=== PATIENT | female | born 1975 | race Caucasian/White ===

== ENCOUNTER 2017-06-22 06:39 | Day surgery (SDC) | payer MEDICAID ==
[~2017-06-22] VITALS: Ht 154.9 cm; Wt 51.3 kg
[2017-06-22] VITALS (7 sets, daily range): BP systolic 100–109; BP diastolic 57–64; PULSE 60–76; RESP 9–20; Ht 154.9 cm; Wt 51.3 kg
[~2017-06-22 06:39] MED LIST: CEFAZOLIN 2 GM/50 ML (PMX) 50 ML IVPB ONE; CIPR500T4 PO; HYDR-3498 PO; IBUP-1542 PO; SOD CHLORIDE 0.9% 1,000 ML IV ONE
[2017-06-22 07:01] LABS: BASOPHIL # 0.1 10^3/ul (0.0-0.1); BASOPHILS % 0.7 % (0.0-2.0); EOSINOPHILS # 0.2 10^3/ul (0.0-0.5); EOSINOPHILS % 3.1 % (0.0-7.0); HEMATOCRIT 32.3 % (37.0-47.0); LYMPHOCYTES # 2.6 10^3/ul (0.8-2.9); LYMPHOCYTES % 38.4 % (15.0-51.0); MEAN CORPUSCULAR HEMOGLOBIN 24.7 pg (29.0-33.0); MEAN CORPUSCULAR VOLUME 79.8 fl (82.0-101.0); MEAN PLATELET VOLUME 9.1 fl (7.4-10.4); MONOCYTE # 0.3 10^3/ul (0.3-0.9); MONOCYTES % 4.9 % (0.0-11.0); NEUTROPHIL # 3.5 10^3/ul (1.6-7.5); NEUTROPHILS % 52.6 % (39.0-77.0); PLATELET COUNT 320 10^3/UL (140-415); RED BLOOD COUNT 4.05 10^6/ul (4.20-5.40); RED CELL DISTRIBUTION WIDTH 18.6 % (11.5-14.5); WHITE BLOOD COUNT 6.7 10^3/ul (4.8-10.8)
[2017-06-22 07:20] LABS: INR 1.12; PARTIAL THROMBOPLASTIN TIME 29.8 Sec (25.0-35.0); PROTIME 14.4 Sec (12.2-14.2); PT RATIO 1.1
[2017-06-22 07:24] LABS: ALBUMIN 3.9 g/dl (3.3-4.9); BILIRUBIN,INDIRECT 0.2 mg/dl (0-1.1); BILIRUBIN,TOTAL 0.2 mg/dl (0.2-1.3); TOTAL PROTEIN 7.8 g/dl (6.1-8.1)
[2017-06-22] MEDS ORDERED: ROCURONIUM 50 MG INJ ONE (07:29)
[2017-06-22] MEDS ORDERED: GLYCOPYRROLATE 0.4 MG INJ ONE (07:29)
[2017-06-22] MEDS ORDERED: LIDOCAINE 2% (SDV) 5 ML INJ ONE (07:29)
[2017-06-22] MEDS ORDERED: FENTAnyl 50 MCG/ML VIAL ONE (07:29)
[2017-06-22] MEDS ORDERED: PROPOFOL 20 ML ONE (07:29)
[2017-06-22] MEDS ORDERED: MIDAZOLAM 1 MG/ML 2 ML INJ ONE (07:29)
[2017-06-22] MEDS ORDERED: NEOSTIGMINE 3 MG/3 ML SYRINGE ONE (07:29)
[2017-06-22 07:30] LABS: POTASSIUM 3.7 mmol/L (3.5-5.1)
[2017-06-22] MEDS ORDERED: OXYCODONE/ACETAMINOPHEN (5/325) TAB PO PRN ×2 (07:30)
[2017-06-22] MEDS ORDERED: ONDANSETRON 4 MG INJ ONE (07:30)
[2017-06-22] MEDS ORDERED: HYDROmorphONE (0.2 MG/ML) 10ML SYG IV PRN ×3 (07:30)
[2017-06-22] MEDS ORDERED: EPHEDrine SULFATE 50 MG/5 ML SYG IV PRN (07:30)
[2017-06-22] MEDS ORDERED: MEPERIDINE 25 MG INJ IV PRN (07:30)
[2017-06-22] MEDS ORDERED: MIDAZOLAM 1 MG/ML 2 ML INJ IV PRN (07:30)
[2017-06-22] MEDS ORDERED: LABETALOL HCL 20MG INJ IV PRN (07:30)
[2017-06-22] MEDS ORDERED: hydrALAzine 20 MG INJ IV PRN (07:30)
[2017-06-22] MEDS ORDERED: FENTAnyl 50 MCG/ML VIAL IV PRN (07:30)
[2017-06-22] MEDS ORDERED: ONDANSETRON 4 MG INJ IV PRN (07:30)
[2017-06-22] MEDS ORDERED: DIPHENHYDRAMINE 50 MG INJ IV PRN (07:30)
[2017-06-22] MEDS ORDERED: morphine (1 MG/ML) 10ML SYRINGE IV PRN ×3 (07:30)
[2017-06-22] MEDS ORDERED: ATROPINE 1 MG/10 ML SYRINGE IV PRN (07:30)
[2017-06-22 07:31] LABS: CREATININE 0.62 mg/dl (0.44-1.00)
[2017-06-22] MEDS ORDERED: SUGAMMADEX SODIUM 200 MG/2 ML VIAL IV ONE (07:31)
[2017-06-22] MEDS ORDERED: CEFAZOLIN 1 GM INJ ONE (07:31)
[2017-06-22] MEDS ORDERED: BUPIVACAINE 0.5%/EPI (SDV) 30 ML INJ ONE (08:06)
--- NOTE | 2017-06-22 09:44 | SIPON ---
Date/Time of Note Date/Time of Note DATE: 06/22/17 TIME: 09:42 Operative Report Preoperative Diagnosis Left breast mass Postoperative Diagnosis Same Operation/Procedure Performed Excision of left breast mass Surgeon see signature line conventions assistant Dr Jara Anesthesia: general Estimated blood loss: 0 - 10 ml's Transfusion Required none Specimen Left breast specimen Grafts/Implants none Complications none EUGENIA RUELAS MD Jun 22, 2017 09:44
[2017-06-22] MEDS ORDERED: HYDROCODONE/APAP (7.5/325) TAB PO PRN (10:00)
[2017-06-22] MEDS: FENTAnyl 50 MCG/ML VIAL IV PRN ×2 (10:06→10:17)
--- NOTE | 2017-06-22 10:40 | OPR ---
DATE OF OPERATION: 06/22/2017 PREOPERATIVE DIAGNOSIS: Left breast mass. POSTOPERATIVE DIAGNOSIS: Left breast mass. OPERATION PERFORMED: Excision of left breast mass. ANESTHESIA: General. ANESTHESIOLOGIST: Dr. Robles. SURGEON: Ramu Strange MD GROUP HOME MANAGER: Dr. Jara. INDICATIONS FOR PROCEDURE: The patient is a 41-year-old female who presented with a palpable mass i n her left breast at approximately the 2 o'clock location, approximately 2 cm from the nipple-areola r border. 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 Surgical excision was recommended. The patient consented and was schedu led for surgery. DESCRIPTION OF PROCEDURE: The patient was brought to the operating theater, placed under general an esthesia. The left breast was prepped and draped in usual sterile fashion. A 2 to 3 cm incision wa s made directly over the mass. Subcutaneous tissue was then dissected with cautery. Within the sub cutaneous space, a well-circumscribed mass consistent with the preoperative diagnosis was identified . It was enucleated with a gloved finger, transected and removed. Minimal bleeding was controlled with cautery. The skin was then reapproximated with 5-0 PDS suture in subcuticular fashion, and luisa zoin and Steri-Strips were applied. The patient tolerated procedure well. Estimated blood loss was 10 mL. There were no complications and the patient was transported in stable condition to the [facility] very room where circumferential compression dressing was applied. Dictated By: RAMU MAYO/CK Conf#: [id number] [facility]#: [id number]
== END 2017-06-22 11:11 | disposition home or self-care (01) ==
LOC: SDS 06:39
PROVIDERS: ATTEND Surgery Surgical Oncology
DX: D24.2 Benign neoplasm of left breast (principal)
CPT/HCPCS: 19120; 80053; 84703; 85025; 85610; 85730; 88307; J0690; J2250; J2405; J3010; Z7512; Z7610; J2710

== ENCOUNTER 2017-06-24 20:10 | Emergency (ER) | payer MEDICAID, OTHER ==
[~2017-06-24] VITALS: Ht 154.9 cm; Wt 52.0 kg
[2017-06-24 20:20] VITALS: Ht 154.9 cm; Wt 52.0 kg
--- NOTE | 2017-06-24 22:28 | ERD ---
ER Documentation Chief Complaint Chief Complaint removed steri strips by mistake, post op breast surgery, no bleeding HPI 41-year-old female who presents the ED for concerns of a wound check. Patient states she underwent breast surgery [address] Ramu Strange remove a breast cyst. Patient states she was taking a shower when she accidentally removed her Steri-Strips. Patient denies any wound dehiscence. Patient states she did have some minimal bleeding however lasted only for a minute. Patient denies any fevers or chills. Patient denies any chest pain, shortness of breath , nausea, vomiting or loss of consciousness. ROS All systems reviewed and are negative except as per history of present illness. Medications Home Meds Discontinued Scripts Hydrocodone Bit-Acetaminophen* ([place]*) 5-325 Mg Tab, 1 TAB PO DAILY Y for PAIN , #15 TAB 0 Refills Prov:CHARLENE ZHENG PA-C 10/15/15 Ibuprofen* (Motrin*) 600 Mg Tab, 600 MG PO Q6, #30 TAB Prov:SCOTTIE PANDYA 08/25/15 Hydrocodone Bit-Acetaminophen* ([place]*) 5-325 Mg Tab, 1 TAB PO Q6 Y for PAIN, # 20 TAB Prov:SCOTTIE PANDYA C 08/25/15 Ciprofloxacin Hcl* (Ciprofloxacin Hcl*) 500 Mg Tablet, 500 MG PO BID, #14 TAB Prov:SCOTTIE PANDYA C 08/25/15 Allergies Allergies: Coded Allergies: No Known Allergy (Unverified , 06/24/17) PMhx/Soc Medical and Surgical Hx: pt denies Surgical Hx History of Surgery: No Anesthesia Reaction: No Hx Neurological Disorder: No Hx Respiratory Disorders: No Hx Cardiac Disorders: No Hx Psychiatric Problems: No Hx Miscellaneous Medical Probl: Yes (lt breast lesion) Hx Alcohol Use: No Hx Substance Use: No Hx Tobacco Use: No Physical Exam Vitals Vital Signs Date Time Temp Pulse Resp B/P Pulse Ox O2 Delivery O2 Flow Rate FiO2 06/24/17 20:20 97.8 74 20 118/53 100 Physical Exam GENERAL: Well-developed, well-nourished female. Appears in no acute distress. HEAD: Normocephalic, atraumatic. EYES: Pupils are equally reactive bilaterally. EOMs grossly intact. No conjunctival erythema. ENT: Moist mucous membranes. No uvula deviation. No kissing tonsils. NECK: Supple. No meningismus. Normal range of motion of the neck. LUNG: Clear to auscultation bilaterally. No rhonchi, wheezing, rales or coarse breath sounds. LEFT BREAST: 2 Centimeter incision noted in the 2 o'clock position of the left breast above the nipple. No wound dehiscence noted. One Steri-Strip remains intact. No active bleeding. No warmth, no swelling. HEART: Regular rate and rhythm. No murmurs, rubs or gallops. EXTREMITIES: Equal pulses bilaterally. No peripheral clubbing, cyanosis or edema. No unilateral leg swelling. NEUROLOGIC: Alert and oriented. Moving all four extremities without any difficulty. Normal speech. Steady gait. SKIN: Normal color. Warm and dry. No rashes or lesions. Procedures/MDM MEDICAL DECISION MAKING: This is a 41-year-old female who presents to the ED for concerns of a wound check to her left breast. Patient underwent cyst removal on Sunday of her left breast. Patient states she actually pulled off the Steri-Strips earlier today while showering. Vital signs were reviewed. Patient is afebrile. The wound appears to be healing well with no concerns of acute infection at this time. No wound drainage or wound dehiscence noted. Steri-Strips were replaced on the patient's wound. Wound care was discussed with the patient. Low suspicion for wound dehiscence, deep space infection, abscess, ACS. Was advised to follow-up with her Dr. Strange as scheduled. DISCHARGE: At this time, the patient is stable for discharge and outpatient management. Post-procedural wound care was discussed with the patient. I have instructed the patient to promptly return to the ER for any new or worsening symptoms including increasing pain, fever, warmth, redness or swelling. The patient and/ or family expressed understanding of and agreement with this plan. All questions were answered. Home care instructions were provided. Departure Diagnosis: Primary Impression: Encounter for wound re-check Condition: Stable Patient Instructions: Post Op Wound Check, Pain, Wound Check, Lac F/U (No Infection) Referrals: RAMU STRANGE MD [facility] YOU HAVE RECEIVED A MEDICAL SCREENING EXAM AND THE RESULTS INDICATE THAT YOU DO NOT HAVE A CONDITION THAT REQUIRES URGENT TREATMENT IN THE EMERGENCY DEPARTMENT. FURTHER EVALUATION AND TREATMENT OF YOUR CONDITION CAN WAIT UNTIL YOU ARE SEEN IN YOUR DOCTORS OFFICE WITHIN THE NEXT 1-2 DAYS. IT IS YOUR RESPONSIBILITY TO MAKE AN APPOINTMENT FOR FOLOW-UP CARE. IF YOU HAVE A PRIMARY DOCTOR --you should call your primary doctor and schedule an appointment IF YOU DO NOT HAVE A PRIMARY DOCTOR YOU CAN CALL OUR PHYSICIAN REFERRAL HOTLINE AT IF YOU CAN NOT AFFORD TO SEE A PHYSICIAN YOU CAN CHOSE FROM THE FOLLOWING [facility] [address] [facility] [address] [facility] [address] [facility] [address] [facility] [address] [facility]. [facility] [address] [facility]. [facility] YOU HAVE RECEIVED A MEDICAL SCREENING EXAM AND THE RESULTS INDICATE THAT YOU DO NOT HAVE A CONDITION THAT REQUIRES URGENT TREATMENT IN THE EMERGENCY DEPARTMENT. FURTHER EVALUATION AND TREATMENT OF YOUR CONDITION CAN WAIT UNTIL YOU ARE SEEN IN YOUR DOCTORS OFFICE WITHIN THE NEXT 1-2 DAYS. IT IS YOUR RESPONSIBILITY TO MAKE AN APPOINTMENT FOR FOLOW-UP CARE. IF YOU HAVE A PRIMARY DOCTOR --you should call your primary doctor and schedule and appointment IF YOU DO NOT HAVE A PRIMARY DOCTOR YOU CAN CALL OUR PHYSICIAN REFERRAL HOTLINE AT . IF YOU CAN NOT AFFORD TO SEE A PHYSICIAN YOU CAN CHOSE FROM THE FOLLOWING [facility]: [facility] [address] [place] [address] [facility] [address] [place] [address] [facility] + [facility] [address] [place] [address] Additional Instructions: Follow up with . Call your primary care doctor TOMORROW for an appointment during the next 1-2 days.See the doctor sooner or return here if your condition worsens before your appointment time. SUSY TRAN PA-C Jun 24, 2017 22:28
--- NOTE | 2017-06-24 22:28 | ERD ---
ER Documentation Chief Complaint Chief Complaint removed steri strips by mistake, post op breast surgery, no bleeding HPI 41-year-old female who presents the ED for concerns of a wound check. Patient states she underwent breast surgery [address] Ramu Strange remove a breast cyst. Patient states she was taking a shower when she accidentally removed her Steri-Strips. Patient denies any wound dehiscence. Patient states she did have some minimal bleeding however lasted only for a minute. Patient denies any fevers or chills. Patient denies any chest pain, shortness of breath , nausea, vomiting or loss of consciousness. ROS All systems reviewed and are negative except as per history of present illness. Medications Home Meds Discontinued Scripts Hydrocodone Bit-Acetaminophen* ([place]*) 5-325 Mg Tab, 1 TAB PO DAILY Y for PAIN , #15 TAB 0 Refills Prov:CHARLENE ZHENG PA-C 10/15/15 Ibuprofen* (Motrin*) 600 Mg Tab, 600 MG PO Q6, #30 TAB Prov:SCOTTIE PANDYA 08/25/15 Hydrocodone Bit-Acetaminophen* ([place]*) 5-325 Mg Tab, 1 TAB PO Q6 Y for PAIN, # 20 TAB Prov:SCOTTIE PANDYA C 08/25/15 Ciprofloxacin Hcl* (Ciprofloxacin Hcl*) 500 Mg Tablet, 500 MG PO BID, #14 TAB Prov:SCOTTIE PANDYA C 08/25/15 Allergies Allergies: Coded Allergies: No Known Allergy (Unverified , 06/24/17) PMhx/Soc Medical and Surgical Hx: pt denies Surgical Hx History of Surgery: No Anesthesia Reaction: No Hx Neurological Disorder: No Hx Respiratory Disorders: No Hx Cardiac Disorders: No Hx Psychiatric Problems: No Hx Miscellaneous Medical Probl: Yes (lt breast lesion) Hx Alcohol Use: No Hx Substance Use: No Hx Tobacco Use: No Physical Exam Vitals Vital Signs Date Time Temp Pulse Resp B/P Pulse Ox O2 Delivery O2 Flow Rate FiO2 06/24/17 20:20 97.8 74 20 118/53 100 Physical Exam GENERAL: Well-developed, well-nourished female. Appears in no acute distress. HEAD: Normocephalic, atraumatic. EYES: Pupils are equally reactive bilaterally. EOMs grossly intact. No conjunctival erythema. ENT: Moist mucous membranes. No uvula deviation. No kissing tonsils. NECK: Supple. No meningismus. Normal range of motion of the neck. LUNG: Clear to auscultation bilaterally. No rhonchi, wheezing, rales or coarse breath sounds. LEFT BREAST: 2 Centimeter incision noted in the 2 o'clock position of the left breast above the nipple. No wound dehiscence noted. One Steri-Strip remains intact. No active bleeding. No warmth, no swelling. HEART: Regular rate and rhythm. No murmurs, rubs or gallops. EXTREMITIES: Equal pulses bilaterally. No peripheral clubbing, cyanosis or edema. No unilateral leg swelling. NEUROLOGIC: Alert and oriented. Moving all four extremities without any difficulty. Normal speech. Steady gait. SKIN: Normal color. Warm and dry. No rashes or lesions. Procedures/MDM MEDICAL DECISION MAKING: This is a 41-year-old female who presents to the ED for concerns of a wound check to her left breast. Patient underwent cyst removal on Sunday of her left breast. Patient states she actually pulled off the Steri-Strips earlier today while showering. Vital signs were reviewed. Patient is afebrile. The wound appears to be healing well with no concerns of acute infection at this time. No wound drainage or wound dehiscence noted. Steri-Strips were replaced on the patient's wound. Wound care was discussed with the patient. Low suspicion for wound dehiscence, deep space infection, abscess, ACS. Was advised to follow-up with her Dr. Strange as scheduled. DISCHARGE: At this time, the patient is stable for discharge and outpatient management. Post-procedural wound care was discussed with the patient. I have instructed the patient to promptly return to the ER for any new or worsening symptoms including increasing pain, fever, warmth, redness or swelling. The patient and/ or family expressed understanding of and agreement with this plan. All questions were answered. Home care instructions were provided. Departure Diagnosis: Primary Impression: Encounter for wound re-check Condition: Stable Patient Instructions: Post Op Wound Check, Pain, Wound Check, Lac F/U (No Infection) Referrals: RAMU STRANGE MD [facility] YOU HAVE RECEIVED A MEDICAL SCREENING EXAM AND THE RESULTS INDICATE THAT YOU DO NOT HAVE A CONDITION THAT REQUIRES URGENT TREATMENT IN THE EMERGENCY DEPARTMENT. FURTHER EVALUATION AND TREATMENT OF YOUR CONDITION CAN WAIT UNTIL YOU ARE SEEN IN YOUR DOCTORS OFFICE WITHIN THE NEXT 1-2 DAYS. IT IS YOUR RESPONSIBILITY TO MAKE AN APPOINTMENT FOR FOLOW-UP CARE. IF YOU HAVE A PRIMARY DOCTOR --you should call your primary doctor and schedule an appointment IF YOU DO NOT HAVE A PRIMARY DOCTOR YOU CAN CALL OUR PHYSICIAN REFERRAL HOTLINE AT IF YOU CAN NOT AFFORD TO SEE A PHYSICIAN YOU CAN CHOSE FROM THE FOLLOWING [facility] [place] [place] [address] [facility] [address] [facility] [address] [facility] [address] [facility] [address] [facility]. [facility] [address] [facility]. [facility] YOU HAVE RECEIVED A MEDICAL SCREENING EXAM AND THE RESULTS INDICATE THAT YOU DO NOT HAVE A CONDITION THAT REQUIRES URGENT TREATMENT IN THE EMERGENCY DEPARTMENT. FURTHER EVALUATION AND TREATMENT OF YOUR CONDITION CAN WAIT UNTIL YOU ARE SEEN IN YOUR DOCTORS OFFICE WITHIN THE NEXT 1-2 DAYS. IT IS YOUR RESPONSIBILITY TO MAKE AN APPOINTMENT FOR FOLOW-UP CARE. IF YOU HAVE A PRIMARY DOCTOR --you should call your primary doctor and schedule and appointment IF YOU DO NOT HAVE A PRIMARY DOCTOR YOU CAN CALL OUR PHYSICIAN REFERRAL HOTLINE AT . IF YOU CAN NOT AFFORD TO SEE A PHYSICIAN YOU CAN CHOSE FROM THE FOLLOWING [facility]: [facility] [address] [place] [address] [facility] [address] [place] [address] [facility] [address] [place] [address] Additional Instructions: Follow up with . Call your primary care doctor TOMORROW for an appointment during the next 1-2 days.See the doctor sooner or return here if your condition worsens before your appointment time. SUSY TRAN PA-C Jun 24, 2017 22:28
--- NOTE | 2017-06-24 22:28 | ERD ---
ER Documentation Chief Complaint Chief Complaint removed steri strips by mistake, post op breast surgery, no bleeding HPI 41-year-old female who presents the ED for concerns of a wound check. Patient states she underwent breast surgery [address] Ramu Strange remove a breast cyst. Patient states she was taking a shower when she accidentally removed her Steri-Strips. Patient denies any wound dehiscence. Patient states she did have some minimal bleeding however lasted only for a minute. Patient denies any fevers or chills. Patient denies any chest pain, shortness of breath , nausea, vomiting or loss of consciousness. ROS All systems reviewed and are negative except as per history of present illness. Medications Home Meds Discontinued Scripts Hydrocodone Bit-Acetaminophen* ([place]*) 5-325 Mg Tab, 1 TAB PO DAILY Y for PAIN , #15 TAB 0 Refills Prov:CHARLENE ZHENG PA-C 10/15/15 Ibuprofen* (Motrin*) 600 Mg Tab, 600 MG PO Q6, #30 TAB Prov:SCOTTIE PANDYA 08/25/15 Hydrocodone Bit-Acetaminophen* ([place]*) 5-325 Mg Tab, 1 TAB PO Q6 Y for PAIN, # 20 TAB Prov:SCOTTIE PANDYA C 08/25/15 Ciprofloxacin Hcl* (Ciprofloxacin Hcl*) 500 Mg Tablet, 500 MG PO BID, #14 TAB Prov:SCOTTIE PANDYA C 08/25/15 Allergies Allergies: Coded Allergies: No Known Allergy (Unverified , 06/24/17) PMhx/Soc Medical and Surgical Hx: pt denies Surgical Hx History of Surgery: No Anesthesia Reaction: No Hx Neurological Disorder: No Hx Respiratory Disorders: No Hx Cardiac Disorders: No Hx Psychiatric Problems: No Hx Miscellaneous Medical Probl: Yes (lt breast lesion) Hx Alcohol Use: No Hx Substance Use: No Hx Tobacco Use: No Physical Exam Vitals Vital Signs Date Time Temp Pulse Resp B/P Pulse Ox O2 Delivery O2 Flow Rate FiO2 06/24/17 20:20 97.8 74 20 118/53 100 Physical Exam GENERAL: Well-developed, well-nourished female. Appears in no acute distress. HEAD: Normocephalic, atraumatic. EYES: Pupils are equally reactive bilaterally. EOMs grossly intact. No conjunctival erythema. ENT: Moist mucous membranes. No uvula deviation. No kissing tonsils. NECK: Supple. No meningismus. Normal range of motion of the neck. LUNG: Clear to auscultation bilaterally. No rhonchi, wheezing, rales or coarse breath sounds. LEFT BREAST: 2 Centimeter incision noted in the 2 o'clock position of the left breast above the nipple. No wound dehiscence noted. One Steri-Strip remains intact. No active bleeding. No warmth, no swelling. HEART: Regular rate and rhythm. No murmurs, rubs or gallops. EXTREMITIES: Equal pulses bilaterally. No peripheral clubbing, cyanosis or edema. No unilateral leg swelling. NEUROLOGIC: Alert and oriented. Moving all four extremities without any difficulty. Normal speech. Steady gait. SKIN: Normal color. Warm and dry. No rashes or lesions. Procedures/MDM MEDICAL DECISION MAKING: This is a 41-year-old female who presents to the ED for concerns of a wound check to her left breast. Patient underwent cyst removal on Sunday of her left breast. Patient states she actually pulled off the Steri-Strips earlier today while showering. Vital signs were reviewed. Patient is afebrile. The wound appears to be healing well with no concerns of acute infection at this time. No wound drainage or wound dehiscence noted. Steri-Strips were replaced on the patient's wound. Wound care was discussed with the patient. Low suspicion for wound dehiscence, deep space infection, abscess, ACS. Was advised to follow-up with her Dr. Strange as scheduled. DISCHARGE: At this time, the patient is stable for discharge and outpatient management. Post-procedural wound care was discussed with the patient. I have instructed the patient to promptly return to the ER for any new or worsening symptoms including increasing pain, fever, warmth, redness or swelling. The patient and/ or family expressed understanding of and agreement with this plan. All questions were answered. Home care instructions were provided. Departure Diagnosis: Primary Impression: Encounter for wound re-check Condition: Stable Patient Instructions: Post Op Wound Check, Pain, Wound Check, Lac F/U (No Infection) Referrals: RAMU STRANGE MD [facility] YOU HAVE RECEIVED A MEDICAL SCREENING EXAM AND THE RESULTS INDICATE THAT YOU DO NOT HAVE A CONDITION THAT REQUIRES URGENT TREATMENT IN THE EMERGENCY DEPARTMENT. FURTHER EVALUATION AND TREATMENT OF YOUR CONDITION CAN WAIT UNTIL YOU ARE SEEN IN YOUR DOCTORS OFFICE WITHIN THE NEXT 1-2 DAYS. IT IS YOUR RESPONSIBILITY TO MAKE AN APPOINTMENT FOR FOLOW-UP CARE. IF YOU HAVE A PRIMARY DOCTOR --you should call your primary doctor and schedule an appointment IF YOU DO NOT HAVE A PRIMARY DOCTOR YOU CAN CALL OUR PHYSICIAN REFERRAL HOTLINE AT IF YOU CAN NOT AFFORD TO SEE A PHYSICIAN YOU CAN CHOSE FROM THE FOLLOWING [facility] [address] [facility] [address] [facility] [address] [facility] [address] [facility] [address] [facility]. [facility] [address] [facility]. [facility] YOU HAVE RECEIVED A MEDICAL SCREENING EXAM AND THE RESULTS INDICATE THAT YOU DO NOT HAVE A CONDITION THAT REQUIRES URGENT TREATMENT IN THE EMERGENCY DEPARTMENT. FURTHER EVALUATION AND TREATMENT OF YOUR CONDITION CAN WAIT UNTIL YOU ARE SEEN IN YOUR DOCTORS OFFICE WITHIN THE NEXT 1-2 DAYS. IT IS YOUR RESPONSIBILITY TO MAKE AN APPOINTMENT FOR FOLOW-UP CARE. IF YOU HAVE A PRIMARY DOCTOR --you should call your primary doctor and schedule and appointment IF YOU DO NOT HAVE A PRIMARY DOCTOR YOU CAN CALL OUR PHYSICIAN REFERRAL HOTLINE AT . IF YOU CAN NOT AFFORD TO SEE A PHYSICIAN YOU CAN CHOSE FROM THE FOLLOWING [facility]: [facility] [address] [place] [address] [facility] [address] [place] [address] [facility] [address] [place] [address] Additional Instructions: Follow up with . Call your primary care doctor TOMORROW for an appointment during the next 1-2 days.See the doctor sooner or return here if your condition worsens before your appointment time. SUSY TRAN PA-C Jun 24, 2017 22:28
[2017-06-24 22:36] VITALS: BP 104/55; PULSE 68; RESP 16; TEMP 98
== END 2017-06-24 22:37 | disposition home or self-care (01) ==
LOC: FTE 20:10
DX: Z48.01 Encounter for change or removal of surgical wound dressing (principal)
CPT/HCPCS: 99282